=== PATIENT | female | born 1995 | race Caucasian/White ===

== ENCOUNTER 2017-11-03 13:38 | Emergency (ER) | payer OTHER | END 2017-11-03 14:13 | disposition home or self-care (01) | LOC: FTE 13:38 → E/R 14:13 | DX: J06.9 Acute upper respiratory infection, unspecified (principal) | CPT/HCPCS: 99283; Z7502 ==

== ENCOUNTER 2018-02-18 02:23 | Emergency (ER) | payer OTHER ==
[2018-02-18] MEDS: ACETAMINOPHEN 325 MG TAB PO (02:58)
== END 2018-02-18 04:39 | disposition home or self-care (01) ==
LOC: FTE 02:23
DX: J02.9 Acute pharyngitis, unspecified (principal); R40.2412 Glasgow coma scale score 13-15, at arrival to emergency department
CPT/HCPCS: 87880; 99283

== ENCOUNTER 2018-11-10 12:14 | Emergency (ER) | payer OTHER | END 2018-11-10 15:43 | disposition home or self-care (01) | LOC: FTE 12:14 | DX: J11.1 Influenza due to unidentified influenza virus with other respiratory manifestations (principal) | CPT/HCPCS: 99283; Z7502 ==